=== PATIENT | female | born 2005 | race Two or more races ===

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

== ENCOUNTER 2024-04-07 10:49 | Emergency (ER) | payer OTHER ==
[~2024-04-07] VITALS: Ht 157.5 cm; Wt 52.2 kg
== END 2024-04-07 12:28 | disposition home or self-care (01) ==
LOC: ER 10:51 → EMR PED 11:16 → ER 11:16 → EMR PED 12:28
DX: I88.9 Nonspecific lymphadenitis, unspecified (principal)